=== PATIENT | male | born 2000 | race Caucasian/White ===

== ENCOUNTER 2021-08-14 04:30 | Emergency (ER) | payer OTHER ==
[~2021-08-14] VITALS: Ht 185.4 cm; Wt 78.7 kg
[2021-08-14] MEDS ORDERED: BACITRACIN OINTMENT 30GM TUBE TOP STA (06:35)
[2021-08-14] MEDS ORDERED: LIDOCAINE 1% MDV 20ML VIAL SC ONE (06:35)
[2021-08-14] MEDS ORDERED: NS 1,000 ML IV ONE (07:00)
[2021-08-14] MEDS ORDERED: ACETAMINOPHEN 500 MG TAB PO ONE (07:00)
[2021-08-14] MEDS ORDERED: METOCLOPRAMIDE INJ 10MG/2ML VIAL (J2765 PER 1) IV ONE (07:00)
[2021-08-14 09:57] VITALS: BP 109/59
== END 2021-08-14 09:58 | disposition home or self-care (01) ==
LOC: M ED 04:30
DX: S01.81XA Laceration without foreign body of other part of head, initial encounter (principal); S06.0X0A Concussion without loss of consciousness, initial encounter; V47.5XXA Car driver injured in collision with fixed or stationary object in traffic accident, initial encounter; Y92.415 Exit ramp or entrance ramp of street or highway as the place of occurrence of the external cause; Y93.9 Activity, unspecified; Y99.9 Unspecified external cause status; M50.221 Other cervical disc displacement at C4-C5 level
CPT/HCPCS: 12001; 70450; 70486; 72125; 73090; 73130; 73502; 96361; 96374; 99284; J2765